=== PATIENT | male | born 1990 | race Caucasian/White ===

== ENCOUNTER 2016-10-28 17:29 | Emergency (ER) | payer SELFPAY ==
[~2016-10-28] VITALS: Ht 195.6 cm; Wt 103.0 kg
[2016-10-28 17:35] VITALS: BP 141/97; PULSE 104; RESP 16; TEMP 98.8; O2SAT 100
[2016-10-28] MEDS ORDERED: TRAM50TA PO (19:32)
[2016-10-28] MEDS ORDERED: AMPH1TAB40 PO (19:32)
[2016-10-28] MEDS ORDERED: ALPR.5 PO (19:32)
[2016-10-28] MEDS ORDERED: CLINDAMYCIN INJ 900 MG in SODIUM CHLORIDE 0.9% INJ 100 ML IV ONE (20:15)
[2016-10-28] MEDS ORDERED: KETOROLAC TROMETHAMINE 30 MG/ML (IVP) VIAL IVP ONE (20:15)
[2016-10-28] MEDS ORDERED: LIDOCAINE HCL 1% PF 30 ML VIAL INFIL ONE (20:15)
--- NOTE | 2016-10-28 20:19 | PD ---
HPI Chief Complaint: Skin Problem Time Seen by Provider: 20:15 Travel History International Travel<30 days: No Contact w/Intl Traveler<30days: No Traveled to known affect area: No History of Present Illness HPI 25-year-old male presents to the emergency department for complaint of progressively worsening pain affecting the medial left buttock cheek. Patient has noticed this over the past 3 days. Last evening attempted to express a pimple thinking that he had an infected hair follicle. Patient states since then symptoms have significantly worsened. Patient denies fever chills nausea vomiting or abdominal pain. Patient denies any recent injury. Patient is not diabetic. Patient does take tramadol for chronic low back pain due to injury at age 15. Patient has taken Aleve without symptom relief. Patient rates his pain 10 over 10 in intensity. PFSH Past Medical History Narrative Medical ADHD, anxiety, L3 4 fracture age 15; no surgery; no tobacco use; nursing notes reviewed ADHD: Yes Anxiety: Yes ?: Not Social History Alcohol Use: Yes Tobacco Use: No Substance Use: No Allergies-Medications (Allergen,Severity, Reaction): Coded Allergies: No Known Allergies (Unverified , 10/28/16) Reported Meds & Prescriptions Reported Meds & Active Scripts Active Reported Tramadol (Tramadol HCl) 50 Mg Tab 100 Mg PO Q6H PRN Adderall (Amphetamine-Dextroamphetamine) 7.5 Mg Tab 7.5 Mg PO DAILY Avoid late evening doses. Space doses at least 4 to 6 hours if more than once/day dosing. Xanax (Alprazolam) 0.5 Mg Tab 0.5 Mg PO Q6H PRN Review of Systems General / Constitutional: No: Fever, Chills HENT: No: Congestion Cardiovascular: No: Chest Pain or Discomfort Respiratory: No: Shortness of Breath Gastrointestinal: No: Abdominal Pain Genitourinary: No: Flank Pain Musculoskeletal: No: Limited ROM Skin: Positive Rash, Positive Lumps (left medial buttock cheek) Neurologic: No: Weakness Psychiatric: Positive: Anxiety Hematologic/Lymphatic: No: Lymph Node Enlargement Physical Exam Narrative GENERAL: Well-developed well-nourished male in no acute distress no respiratory distress SKIN: Warm and dry. Buttock attention left medial aspect area of erythema with central induration and fluctuance no pustule no vesicle no spontaneous drainage tenderness to palpation. HEAD: Normocephalic. EYES: No scleral icterus. No injection or drainage. NECK: Supple, trachea midline. No JVD or lymphadenopathy. CARDIOVASCULAR: Regular rate and rhythm without murmurs, gallops, or rubs. RESPIRATORY: Breath sounds equal bilaterally. No accessory muscle use. GASTROINTESTINAL: Abdomen soft, non-tender, nondistended. MUSCULOSKELETAL: No cyanosis, or edema. BACK: Nontender without obvious deformity. No CVA tenderness. Data Data Last Documented VS Vital Signs Date Time Temp Pulse Resp B/P Pulse Ox O2 Delivery O2 Flow Rate FiO2 10/28/16 17:35 98.8 104 16 141/97 100 Orders Basic Metabolic Panel (Bmp) (10/28/16 20:13) Complete Blood Count With Diff (10/28/16 20:13) Wound Culture And Gram Stain (10/28/16 20:13) Iv Access Insert/Monitor (10/28/16 20:13) Ketorolac Inj (Toradol Inj) (10/28/16 20:15) Clindamycin Inj (Cleocin Inj) (10/28/16 20:15) Lidocaine Pf 1% Inj (Xylocaine-Mpf 1% In (10/28/16 20:15) Ondansetron Inj (Zofran Inj) (10/28/16 21:00) Morphine Inj (Morphine Inj) (10/28/16 21:00) Labs Laboratory Tests Test 10/28/16 20:20 White Blood Count 12.7 TH/MM3 Red Blood Count 4.79 MIL/MM3 Hemoglobin 15.1 GM/DL Hematocrit 44.6 % Mean Corpuscular Volume 93.1 FL Mean Corpuscular Hemoglobin 31.4 PG Mean Corpuscular Hemoglobin 33.8 % Concent Red Cell Distribution Width 11.7 % Platelet Count 274 TH/MM3 Mean Platelet Volume 7.6 FL Neutrophils (%) (Auto) 71.8 % Lymphocytes (%) (Auto) 13.5 % Monocytes (%) (Auto) 9.7 % Eosinophils (%) (Auto) 1.3 % Basophils (%) (Auto) 3.7 % Neutrophils # (Auto) 9.1 TH/MM3 Lymphocytes # (Auto) 1.7 TH/MM3 Monocytes # (Auto) 1.2 TH/MM3 Eosinophils # (Auto) 0.2 TH/MM3 Basophils # (Auto) 0.5 TH/MM3 CBC Comment DIFF FINAL Differential Comment Sodium Level 140 MEQ/L Potassium Level 4.2 MEQ/L Chloride Level 103 MEQ/L Carbon Dioxide Level 30.3 MEQ/L Anion Gap 7 MEQ/L Blood Urea Nitrogen 9 MG/DL Creatinine 1.20 MG/DL Estimat Glomerular Filtration 73 ML/MIN Rate Random Glucose 94 MG/DL Calcium Level 9.4 MG/DL MDM Medical Decision Making Medical Screen Exam Complete: Yes Emergency Medical Condition: Yes Medical Record Reviewed: Yes Interpretation(s) cbc: Leukocytosis Metabolic panel: Values in normal range Differential Diagnosis Abscess, cellulitis, folliculitis Narrative Course IV access obtained specimens collected and sent for resulting patient administered IV clindamycin along with IV Toradol White count is mildly elevated chemistries are normal range Patient agreeable to incision and drainage of abscess after informed consent obtained risk benefit and patient's questions answered to his satisfaction therefore proceeded with I&D of abscess. Patient tolerated I&D well. Patient encouraged to return to the emergency department 2 days to have packing removed. Procedures Procedure Narrative After the risks and benefits were discussed the following procedure was performed: INCISION AND DRAINAGE OF ABSCESS: The area was prepped and was sterilely draped. A subcutaneous wheal of 1% % Xylocaine with a total number 3 mL was used to anesthetize the area. The area was properly anesthetized. A number 11 scalpel was used to make a 1.5-cm incision across the area of the abscess. Cultures were obtained. The abscess was drained an irrigated with normal saline. Quarter inch iodoform packing was placed in the wound. Sterile dressing applied. Patient advised to have packing removed in two days. Diagnosis Primary Impression: Abscess of buttock, left Referrals: Primary Care Physician call for appointment Patient Instructions: Narcotic given in the ED, General Instructions Departure Forms: Tests/Procedures, Work Release Special Instructions: no work x 2 days Additional Instructions: Apply warm compresses intermittently to area for comfort Take ibuprofen high dose as needed for pain associated with inflammation and/or for fever 100.4F or greater Take Lortab/hydrocodone as prescribed as needed for pain greater than 6/10 in intensity be aware that this medication may cause drowsiness increased risk for fall impair judgment do not take this medication with any alcoholic beverages and use with caution with other medications may cause drowsiness Complete course of antibiotic as prescribed No work 2 days Monitor temperature for fever take acetaminophen or ibuprofen as needed for fever 100.4F or greater Return to the emergency department in 2 days for packing removal or prior to this for pain fever vomiting or any concerns Follow-up with your primary care provider Med/Other Pt SpecificInfo: Prescription(s) given Scripts Ibuprofen 800 Mg [id number] Mg PO Q8H PRN (PAIN GREATER THAN 5) #10 TAB Ref 0 Prov:Iris Sharma MD 10/28/16 Hydrocodone-Acetaminophen (Lortab)5-325 Mg Tab1-2 Tab PO Q6H PRN (PAIN GREATER THAN 6) #15 TAB Ref 0 Prov:Iris Sharma MD 10/28/16 Clindamycin 150 Mg [id number] Mg PO Q6H 7 Days Ref 0 Prov:Iris Sharma MD 10/28/16 Disposition: 01 DISCHARGE HOME Condition: Stable Iris Sharma MD Oct 28, 2016 20:19
[2016-10-28 20:26] LABS: AUTOMATED NEUTROPHIL # 9.1 TH/MM3 (1.8-7.7); BASOPHIL # 0.5 TH/MM3 (0-0.2); BASOPHIL % 3.7 % (0.0-2.0); EOSINOPHIL # 0.2 TH/MM3 (0-0.4); EOSINOPHIL % 1.3 % (0.0-4.0); HEMATOCRIT 44.6 % (39.0-51.0); HEMO FLAGS DIFF FINAL; LYMPH % 13.5 % (9.0-44.0); LYMPHOCYTE # 1.7 TH/MM3 (1.0-4.8); MEAN CELL VOLUME 93.1 FL (80.0-100.0); MEAN CORPUSCULAR HEMOGLOBIN 31.4 PG (27.0-34.0); MEAN CORPUSCULAR HGB CONC 33.8 % (32.0-36.0); MONO % 9.7 % (0.0-8.0); NEUT % 71.8 % (16.0-70.0); PLATELET COUNT 274 TH/MM3 (150-450); RED BLOOD COUNT 4.79 MIL/MM3 (4.50-5.90); RED CELL DISTRIBUTION WIDTH 11.7 % (11.6-17.2); WHITE BLOOD COUNT 12.7 TH/MM3 (4.0-11.0)
[2016-10-28 20:33] LABS: POTASSIUM 4.2 MEQ/L (3.5-5.1)
[2016-10-28 20:36] LABS: BICARBONATE 30.3 MEQ/L (21.0-32.0)
[2016-10-28] MEDS ORDERED: ONDANSETRON HCL 4 MG/2 ML VIAL IV PUSH ONE (21:00)
[2016-10-28] MEDS ORDERED: MORPHINE SULFATE 4 MG/ML INJ IV PUSH ONE (21:00)
[2016-10-28] MEDS ORDERED: CLIN1CAP5 PO (22:00)
[2016-10-28] MEDS ORDERED: HYDR-3533 PO (22:01)
[2016-10-28] MEDS ORDERED: IBUP800T23 PO (22:01)
[2016-10-28 22:33] VITALS: BP 147/88
== END 2016-10-28 22:36 | disposition home or self-care (01) ==
LOC: PHED 17:29
DX: L02.31 Cutaneous abscess of buttock (principal)
CPT/HCPCS: 10061; 80048; 85025; 86403; 87070; 96365; 96375; 99283; J1885; J2270; J2405; 87205

== ENCOUNTER 2016-11-01 19:50 | Emergency (ER) | payer SELFPAY ==
[~2016-11-01] VITALS: Ht 195.6 cm; Wt 104.5 kg
[~2016-11-01 19:50] MED LIST: ALPR.5 PO; AMPH1TAB40 PO; CLIN1CAP5 PO; HYDR-3533 PO; IBUP800T23 PO; TRAM50TA PO
[2016-11-01 19:54] VITALS: BP 121/71; PULSE 65; RESP 18; TEMP 97.7; O2SAT 98
--- NOTE | 2016-11-01 20:18 | PD ---
HPI Chief Complaint: Skin Problem Time Seen by Provider: 20:17 Travel History International Travel<30 days: No Contact w/Intl Traveler<30days: No Traveled to known affect area: No History of Present Illness HPI 25-year-old male presents to the emergency room for abscess recheck. Patient had abscess drained 4 days ago and packing placed. He was given IV clindamycin and discharged with prescription for oral clindamycin, Lortab, and ibuprofen. Patient states he was unable to fill any of his prescriptions because the antibiotics were too expensive and the pharmacy would not fill one unless he had all filled at once. Patient reports continued drainage after discharge until last night when it seemed to stop. While changing the dressing, he accidentally pulled out a large strep of packing. States he cut most of it but left a [address] Patient is concerned that his skin has grown over the packing because he has continued pain. He has been taking Aleve without significant relief in symptoms. Denies fever, chills, nausea, vomiting. PFSH Past Medical History ADHD: Yes Anxiety: Yes Social History Alcohol Use: Yes Tobacco Use: No Substance Use: No Allergies-Medications (Allergen,Severity, Reaction): Coded Allergies: No Known Allergies (Unverified , 11/01/16) Reported Meds & Prescriptions Reported Meds & Active Scripts Active Ibuprofen 800 Mg Tab 800 Mg PO Q8H PRN Lortab (Hydrocodone-Acetaminophen) 5-325 Mg Tab 1-2 Tab PO Q6H PRN Clindamycin (Clindamycin HCl) 150 Mg Cap 300 Mg PO Q6H 7 Days Reported Tramadol (Tramadol HCl) 50 Mg Tab 100 Mg PO Q6H PRN Adderall (Amphetamine-Dextroamphetamine) 7.5 Mg Tab 7.5 Mg PO DAILY Avoid late evening doses. Space doses at least 4 to 6 hours if more than once/day dosing. Xanax (Alprazolam) 0.5 Mg Tab 0.5 Mg PO Q6H PRN Review of Systems Except as stated in HPI: all other systems reviewed are Neg Physical Exam Narrative GENERAL: Well-nourished, well-developed male in no acute distress. Afebrile. Ambulatory. SKIN: Warm and dry. There is an indurated area in the left medial buttocks which measures about 1 cm in diameter that is mildly tender to palpation. There is no fluctuance, drainage, inflammation, or lymphangitis. HEAD: Normocephalic. EYES: No scleral icterus. No injection or drainage. NECK: Supple, trachea midline. No JVD or lymphadenopathy. Data Data Last Documented VS Vital Signs Date Time Temp Pulse Resp B/P Pulse Ox O2 Delivery O2 Flow Rate FiO2 11/01/16 19:54 97.7 65 18 121/71 98 MDM Medical Decision Making Medical Screen Exam Complete: Yes Emergency Medical Condition: Yes Medical Record Reviewed: Yes Differential Diagnosis Abscess recheck versus packing removal versus cellulitis Narrative Course 25-year-old male presents to the emergency room for abscess recheck. Patient was seen 4 days ago and had packing placed; was told to return in 2 days for packing removal. He was discharged with prescription for clindamycin but never had it filled because it was too expensive. Reports continued drainage but stopped last night and continued pain for which Aleve has not been helping. Denies systemic signs of infection. Physical exam is reassuring. There is a very mild area of induration that is very mildly tender to palpation. There is no erythema, drainage, or lymphangitis. Incision has closed and there is no evidence of retained foreign body. Patient was given coupon for clindamycin and told that if the previous abscess location develops redness or enlarges to have the prescription filled. Physical exam is reassuring and patient will likely do well without antibiotics. He was told to follow up with the primary care physician and return for worsening symptoms. He understands and agrees to plan. Diagnosis Primary Impression: Abscess of buttock, left Referrals: Primary Care Physician Patient Instructions: Abscess Follow-up (ED), General Instructions Additional Instructions: Rest and drink plenty of fluids. Take ibuprofen as directed, as needed for pain. Follow up with a primary care physician. Return to emergency room for worsening symptoms, as discussed. Disposition: 01 DISCHARGE HOME Condition: Stable Ronna Ballesteros Nov 01, 2016 20:18
== END 2016-11-01 20:21 | disposition home or self-care (01) ==
LOC: PHEFT 19:50
DX: L02.31 Cutaneous abscess of buttock (principal); Z09 Encounter for follow-up examination after completed treatment for conditions other than malignant neoplasm; Z87.2 Personal history of diseases of the skin and subcutaneous tissue
CPT/HCPCS: 99281